=== PATIENT | female | born 1965 | race Caucasian/White ===

== ENCOUNTER 2020-06-08 15:47 | Emergency (ER) | payer BC ==
[~2020-06-08] VITALS: Ht 175.3 cm; Wt 86.0 kg
[2020-06-08 15:49] VITALS: BP 196/112
[2020-06-08] MEDS ORDERED: SODIUM CHLORIDE 0.9% 1,000 ML IV ONE (16:15)
[2020-06-08] MEDS ORDERED: LORAZEPAM 2MG/ML CPJ IV ONE (16:15)
[2020-06-08 16:47] LABS: BASOPHILS % 0.7 % (0.0-2.0); EOSINOPHILS % 1.8 % (0.0-5.0); HEMATOCRIT. 41.6 % (36.0-48.0); HEMOGLOBIN. 14.4 g/dL (12.0-16.0); LYMPHOCYTES % 27.9 % (20.0-50.0); MEAN CORPUSCULAR HEMOGLOBIN 30.5 pg (28.0-32.0); MEAN CORPUSCULAR VOLUME 88.1 fL (81.0-99.0); MEAN PLATELET VOLUME 9.8 fl (7.4-10.4); MONOCYTES % 9.1 % (2.0-8.0); NEUTROPHILS % 60.5 % (40.0-76.0); PLATELET 148 x1000/uL (130-400); RED BLOOD CELL COUNT 4.72 mill/uL (4.2-5.4); RED CELL DISTRIBUTION WIDTH 12.9 % (11.6-14.6)
[2020-06-08 16:53] LABS: CHLORIDE 108 mEq/L (98-107)
[2020-06-08 16:58] LABS: ETHANOL BLOOD < 10 mg/dL
[2020-06-08 17:07] LABS: HCG SCREEN NEGATIVE
== END 2020-06-08 17:52 | disposition left against medical advice (07) ==
LOC: ER 15:47
DX: R00.2 Palpitations (principal); R20.2 Paresthesia of skin; E87.8 Other disorders of electrolyte and fluid balance, not elsewhere classified; I10 Essential (primary) hypertension
CPT/HCPCS: 36415; 80053; 80320; 83880; 84484; 84703; 85025; 93005; 96361; 96374; 99285; J2060; J7030; G0480